=== PATIENT | female | born 1975 | race Caucasian/White ===

== ENCOUNTER 2017-02-23 22:49 | Emergency (ER) | payer OTHER ==
[~2017-02-23] VITALS: Ht 160 cm; Wt 99.8 kg
[~2017-02-23 22:49] MED LIST: OXYC30TA PO; QUET50TA5 PO
[2017-02-23 22:51] VITALS: BP 140/75
[2017-02-24] MEDS ORDERED: HYDROCODON/IBUPROFEN 7.5/200MG TABLET. PO ONE
[2017-02-24] MEDS ORDERED: DIPHTH,PERTUSS(ACELL),TET TOX 0.5 ML DISP.SYRIN. VAX IM ONE
[2017-02-24] MEDS ORDERED: SULF1TAB24 PO (00:36)
[2017-02-24] MEDS ORDERED: HYDR-79 PO (00:36)
--- NOTE | 2017-02-24 00:37 | PHYS DOC ---
Past Medical History Past Medical History: No Pertinent History Past Surgical History: No Surgical History Alcohol Use: None Drug Use: None Adult General Chief Complaint Chief Complaint: ABSCESS HPI HPI Patient is a 41 year old female who presents with an abscess on the left pubic region that began 4 days ago. Patient denies any fever or drainage from the area. Review of Systems Review of Systems Constitutional: See history of present illness Eyes: Denies change in visual acuity, redness, or eye pain [] HENT: Denies nasal congestion or sore throat [] Musculoskeletal: Denies back pain or joint pain [] Integument: Left pubic abscess Neurologic: Denies headache, focal weakness or sensory changes [] Endocrine: Denies polyuria or polydipsia [] Current Medications Current Medications Current Medications Medications (Trade) Dose Ordered Sig/Jack Start Time Stop Time Status Last Admin Dose Admin Diphtheria/ Tetanus/Acell Pertussis (Boostrix) 0.5 ml ONCE ONCE 02/24/17 00:00 02/24/17 00:01 DC 02/24/17 00:19 0.5 ML Hydrocodone Bitartrate/ Ibuprofen (Vicoprofen 7.5-200) 1 tab 1X ONCE 02/24/17 00:00 02/24/17 00:01 DC 02/24/17 00:18 1 TAB Allergies Allergies Allergies Coded Allergies Type Severity Reaction Last Updated Verified acetaminophen Allergy Unknown throat swelling 12/05/14 No Physical Exam Physical Exam Constitutional: Well developed, well nourished, no acute distress, non-toxic appearance. [] Abdomen: Bowel sounds normal, soft, no tenderness, no masses, no pulsatile masses. [] Skin: Left pubic reviewed with an area of induration approximately 3 x 3 cm, the area is surrounded by 4 cm of cellulitis. The area is firm and very tender to palpate and warm to touch. No fluctuance to the area. Back: No tenderness, no CVA tenderness. [] Extremities: No tenderness, no cyanosis, no clubbing, ROM intact, no edema. [] Neurologic: Alert and oriented X 3, normal motor function, normal sensory function, no focal deficits noted. [] Psychologic: Affect normal, judgement normal, mood normal. [] Current Patient Data Vital Signs Vital Signs Date Time Temp Pulse Resp B/P Pulse Ox O2 Delivery O2 Flow Rate FiO2 02/24/17 00:18 18 Room Air 02/23/17 22:51 98.4 86 98 98.4 EKG EKG [] Radiology/Procedures Radiology/Procedures [] Course & Med Decision Making Course & Med Decision Making Pertinent Labs and Imaging studies reviewed. (See chart for details) Patient has left pubic abscess that is not ready to drain. She was given tetanus in the ED. Discharged with Bactrim. Follow-up with primary care doctor in one week. Warm compresses to the area. Provided return precautions and discharged in stable condition. Dragon Disclaimer Dragon Disclaimer This electronic medical record was generated, in whole or in part, using a voice recognition dictation system. Departure Departure Impression: Primary Impression: Abscess of pubic region Disposition: HOME, SELF-CARE Condition: STABLE Referrals: UNKNOWN PCP NAME (PCP) ADAN CROCKER MD Follow-up with your own doctor or the provided doctor in one week Patient Instructions: Abscess Additional Instructions: You were seen for an abscess of the pubic region. Considering its location is more suspicious of an ingrown hair as the cause. Keep the area clean and dry. Apply warm compresses to the area twice a day. Please complete your antibiotics. Follow-up with the provided doctor in a week, come back to the ED at any point symptoms worsen Scripts Hydrocodone/Ibuprofen (Hydrocodone-Ibuprofen 7.5-200 )1 Each Tablet1 Tab PO PRN Q6HRS PRN PAIN #20 TAB Ref 0 Prov:CHAPO FIELDS APRN 02/24/17 Sulfamethoxazole/Trimethoprim (Bactrim Ds Tablet)1 Each Tablet1 Tab PO BID #20 TAB Prov:HCAPO FIELDS APRN 02/24/17 CHAPO FIELDS APRN Feb 24, 2017 00:37
== END 2017-02-24 00:50 | disposition home or self-care (01) ==
LOC: ER 22:49
DX: L02.214 Cutaneous abscess of groin (principal)
CPT/HCPCS: 90471; 90715; 99283-25

== ENCOUNTER → 2018-06-22 | Outpatient (CLI) | payer OTHER ==
[~2018-06-22] MED LIST changes: +HYDR-79 PO; +SULF1TAB24 PO
--- NOTE | 2018-06-22 16:17 | RAD ---
Pelvic ultrasound, 06/22/2018: HISTORY: Amenorrhea Transabdominal and transvaginal scans were obtained. The transabdominal scans were of limited utility due to lack of bladder distention and the patient's body habitus. On the transvaginal scans uterus measures 8.3 x 4.0 x 4.4 cm. A small Nabothian cyst is noted. The central uterine echo complex measures 10 mm in AP dimension. Reportedly the patient just started her menstrual period. The uterus is otherwise unremarkable. The ovaries were not visualized. No adnexal mass is seen. No free fluid is evident in the pelvis. IMPRESSION: 1. Limited exam demonstrating no significant uterine abnormality. 2. The ovaries were not visualized. Electronically signed by: Rohan Mckeon MD (06/22/2018 4:13 PM) [facility]
== END | disposition home or self-care (01) ==
LOC: US 14:44
PROVIDERS: ATTEND Family Medicine
DX: N91.2 Amenorrhea, unspecified (principal); N88.8 Other specified noninflammatory disorders of cervix uteri
CPT/HCPCS: 76830; 76856

== ENCOUNTER 2018-12-13 18:46 | Emergency (ER) | payer OTHER ==
[~2018-12-13] VITALS: Ht 162.6 cm; Wt 102.1 kg
[~2018-12-13 18:46] MED LIST changes: -HYDR-79 PO; +HYDROCODONE-IB1 EAC3 PO; -OXYC30TA PO; +OXYC30TA3 PO
[2018-12-13 18:48] VITALS: BP 163/111
[2018-12-13] MEDS: IPRATRPIUM/ALBUTEROL 0.5/2.5MG 3 ML NEBU. NEB ONE (19:03)
[2018-12-13] MEDS: predniSONE 10 MG TABLET PO ONE (19:09)
[2018-12-13] MEDS ORDERED: PROM118S5 PO (19:56)
[2018-12-13] MEDS ORDERED: ALBU2.5V8 INH (19:56)
[2018-12-13] MEDS ORDERED: DOXY100T PO (19:56)
--- NOTE | 2018-12-13 19:57 | PHYS DOC ---
Past Medical History Past Medical History: No Pertinent History Past Surgical History: No Surgical History Alcohol Use: None Drug Use: None Adult General Chief Complaint Chief Complaint: ASTHMA HPI HPI Patient is a 43 year old [f__sex] who presents with [] Review of Systems Review of Systems Constitutional: Denies fever or chills [] Eyes: Denies change in visual acuity, redness, or eye pain [] HENT: Denies nasal congestion or sore throat [] Respiratory: Denies cough or shortness of breath [] Cardiovascular: No additional information not addressed in HPI [] GI: Denies abdominal pain, nausea, vomiting, bloody stools or diarrhea [] : Denies dysuria or hematuria [] Musculoskeletal: Denies back pain or joint pain [] Integument: Denies rash or skin lesions [] Neurologic: Denies headache, focal weakness or sensory changes [] Endocrine: Denies polyuria or polydipsia [] All other systems were reviewed and found to be within normal limits, except as documented in this note. Current Medications Current Medications Current Medications Medications (Trade) Dose Ordered Sig/Jack Start Time Stop Time Status Last Admin Dose Admin Albuterol/ Ipratropium (Duoneb) 3 ml 1X ONCE 12/13/18 19:00 12/13/18 19:01 DC 12/13/18 19:03 3 ML Prednisone (Prednisone) 50 mg 1X ONCE 12/13/18 19:00 12/13/18 19:01 DC 12/13/18 19:09 50 MG Allergies Allergies Allergies Coded Allergies Type Severity Reaction Last Updated Verified acetaminophen Allergy Unknown throat swelling 12/05/14 No Physical Exam Physical Exam Constitutional: Well developed, well nourished, no acute distress, non-toxic appearance. [] HENT: Normocephalic, atraumatic, bilateral external ears normal, oropharynx moist, no oral exudates, nose normal. [] Eyes: PERRLA, EOMI, conjunctiva normal, no discharge. [] Neck: Normal range of motion, no tenderness, supple, no stridor. [] Cardiovascular:Heart rate regular rhythm, no murmur [] Lungs & Thorax: Bilateral breath sounds clear to auscultation [] Abdomen: Bowel sounds normal, soft, no tenderness, no masses, no pulsatile masses. [] Skin: Warm, dry, no erythema, no rash. [] Back: No tenderness, no CVA tenderness. [] Extremities: No tenderness, no cyanosis, no clubbing, ROM intact, no edema. [] Neurologic: Alert and oriented X 3, normal motor function, normal sensory function, no focal deficits noted. [] Psychologic: Affect normal, judgement normal, mood normal. [] Current Patient Data Vital Signs Vital Signs Date Time Temp Pulse Resp B/P (MAP) Pulse Ox O2 Delivery O2 Flow Rate FiO2 12/13/18 19:05 Room Air 12/13/18 18:48 98.3 86 18 163/111 (128) 98 98.3 EKG EKG [] Radiology/Procedures Radiology/Procedures [] Course & Med Decision Making Course & Med Decision Making Pertinent Labs and Imaging studies reviewed. (See chart for details) [] Dragon Disclaimer Dragon Disclaimer This electronic medical record was generated, in whole or in part, using a voice recognition dictation system. Departure Departure Impression: Primary Impression: Bronchitis Additional Impression: Cough Disposition: HOME, SELF-CARE Condition: STABLE Referrals: Janny BARTLETT MD (PCP) Patient Instructions: Bronchitis, Cough, Adult Additional Instructions: Take the medication as directed. Follow-up with your primary care provider in one week if not improving or return to the emergency department if worsening. Do not drive or operate heavy machinery while taking the medicine for your cough. Scripts Albuterol Sulfate (Proair Hfa) 8.5 Gm Hfa.aer.ad 1 PUFF INH PRN Q6HRS PRN for SHORTNESS OF BREATH, #1 INHALER Prov: KAYLA MAHER APRN 12/13/18 Promethazine Hcl/Codeine (PROMETHAZINE-CODEINE SYRUP) 118 Ml Syrup 5 ML PO Q4-6HRS for cough, #120 ML Prov: KAYLA MAHER APRN 12/13/18 Doxycycline Hyclate (DOXYCYCLINE HYCLATE) 100 Mg Tablet 1 TAB PO BID for cough, #20 TAB Prov: KAYLA MAHER APRN 12/13/18 Problem Qualifiers KAYLA MAHER APRN Dec 13, 2018 19:57
--- NOTE | 2018-12-13 20:19 | RAD ---
CHEST PA LATERAL CLINICAL INDICATION: ER PATIENT. NON PRODUCTIVE COUGH X4 DAYS. PRIOR XRAY. COMPARISON: None FINDINGS: Heart is normal in size. Central bilateral peribronchial wall thickening seen. No focal consolidation. No pneumothorax or pleural effusion. Visualized bony thorax within normal limits. IMPRESSION: Findings of bronchitis. Electronically signed by: Andres Heller DO (12/13/2018 8:15 PM) [facility]
== END 2018-12-13 20:16 | disposition home or self-care (01) ==
LOC: ER 18:46
DX: J40 Bronchitis, not specified as acute or chronic (principal); Z88.6 Allergy status to analgesic agent
CPT/HCPCS: 71046; 94640; 99283; J7512; J7620

== ENCOUNTER 2021-07-02 16:44 | Emergency (ER) | payer BC, OTHER ==
[~2021-07-02] VITALS: Ht 162.6 cm; Wt 111.4 kg
[~2021-07-02 16:44] MED LIST changes: +ALBU2.5V8 INH; +DOXY100T PO; +PROM118S5 PO
[2021-07-02 20:00] VITALS: BP 171/91
--- NOTE | 2021-07-02 20:34 | RAD ---
Single view chest dated 07/02/2021 8:31 PM: COMPARISON: 12/13/2018 Clinical Indication: Shortness breath. Covid 19.. Findings: Single upright portable exam of the chest was performed. Heart and mediastinal contours are stable. T here is patchy airspace disease at the perihilar regions and bilateral lung bases, right greater than left, new from prior study. No pleural effusion. No pneumothorax. IMPRESSION: Mild Patchy bilateral airspace disease, suspicious for Covid 19 pneumonitis. Electronically signed by: Davey Boggs MD (07/02/2021 8:32 PM) [facility]
[2021-07-02] MEDS ORDERED: BENZONATATE 100 MG CAPSULE. PO ONE (22:45)
[2021-07-02] MEDS ORDERED: AZITHROMYCIN 250 MG TABLET. PO ONE (22:45)
[2021-07-02] MEDS ORDERED: BENZ100C PO (22:47)
[2021-07-02] MEDS ORDERED: AZIT250T PO (22:47)
--- NOTE | 2021-07-02 22:47 | PHYS DOC ---
Past Medical History Past Medical History: No Pertinent History (DAVEY LEAL APRN) Past Surgical History: No Surgical History (DAVEY LEAL APRN) Smoking Status: Never Smoker Alcohol Use: None Drug Use: None (DAVEY LEAL APRN) General Adult EDM: Chief Complaint: SHORTNESS OF BREATH HPI: HPI: Patient is a 45 year old female reports ongoing shortness of breath with pain with coughing after being diagnosed with the COVID-19 virus. Patient states she would like a refill of her Tessalon Perle for cough. Patient denies any new symptoms since coming down with the COVID-19 virus. She denies any other physical complaints or physical concerns. (DAVEY LEAL APRN) Review of Systems: Review of Systems: 14 body systems of review of systems have been reviewed. See HPI for pertinent positives and negative responses, otherwise all other systems are negative, nonpertinent or noncontributory. Constitutional: Negative except as outlined in HPI above. Skin: Negative except as outlined in HPI above. Eyes: Negative except as outlined in HPI above. HENT: Negative except as outlined in HPI above. Respiratory: Negative except as outlined in HPI above. Cardiovascular: Negative except as outlined in HPI above. GI: Negative except as outlined in HPI above. : Negative except as outlined in HPI above. Musculoskeletal: Negative except as outlined in HPI above. Integument: Negative except as outlined in HPI above. Neurologic: Negative except as outlined in HPI above. Endocrine: Negative except as outlined in HPI above. Lymphatic: Negative except as outlined in HPI above. Psychiatric: Negative except as outlined in HPI above. (DAVEY LEAL APRN) Heart Score: C/O Chest Pain: No Risk Factors: Risk Factors: DM, Current or recent (<one month) smoker, HTN, HLP, family history of CAD, obesity. Risk Scores: Score 0 - 3: 2.5% MACE over next 6 weeks - Discharge Home Score 4 - 6: 20.3% MACE over next 6 weeks - Admit for Clinical Observation Score 7 - 10: 72.7% MACE over next 6 weeks - Early Invasive Strategies (DAVEY LEAL APRN) Current Medications: Current Medications Medications (Trade) Dose Ordered Sig/Jack Start Time Stop Time Status Last Admin Dose Admin Azithromycin (Zithromax) 500 mg 1X ONCE 07/02/21 22:45 07/02/21 22:46 UNV Benzonatate (Tessalon Perle) 100 mg 1X ONCE 07/02/21 22:45 07/02/21 22:46 UNV (DAVEY ELAL APRN) Allergies: Allergies: Allergies Coded Allergies Type Severity Reaction Last Updated Verified acetaminophen Allergy Unknown throat swelling 12/05/14 No (DAVEY LEAL APRN) Physical Exam: PE: Constitutional: Well developed, well nourished, no acute distress, non-toxic appearance. [] HENT: Normocephalic, atraumatic, bilateral external ears normal, oropharynx moist, no oral exudates, nose normal. [] Eyes: PERRLA, EOMI, conjunctiva normal, no discharge. [] Neck: Normal range of motion, no tenderness, supple, no stridor. [] Cardiovascular:Heart rate regular rhythm, no murmur [] Lungs & Thorax: Bilateral breath sounds clear to auscultation [] Abdomen: Bowel sounds normal, soft, no tenderness, no masses, no pulsatile masses. [] Skin: Warm, dry, no erythema, no rash. [] Back: No tenderness, no CVA tenderness. [] Extremities: No tenderness, no cyanosis, no clubbing, ROM intact, no edema. [] Neurologic: Alert and oriented X 3, normal motor function, normal sensory function, no focal deficits noted. [] Psychologic: Affect normal, judgement normal, mood normal. [] (DAVEY LEAL APRN) Current Patient Data: Vital Signs: Vital Signs Date Time Temp Pulse Resp B/P (MAP) Pulse Ox O2 Delivery O2 Flow Rate FiO2 07/02/21 20:00 99.6 94 18 171/91 (107) 96 Room Air 99.6 (DAVEY LEAL APRN) EKG: EKG: [] (DAVEY LEAL APRN) Radiology/Procedures: Radiology/Procedures: PATIENT: ALEJANDRO SHIOUNT: [id number] : 1975 LOCATION: ER AGE: 45 SEX: F EXAM STATUS: REG ER ORD. PHYSICIAN: DAEVY LEAL APRN REASON: covid positive short of breath PROCEDURE: CHEST AP ONLY Single view chest dated 07/02/2021 8:31 PM: COMPARISON: 12/13/2018 Clinical Indication: Shortness breath. Covid 19.. Findings: Single upright portable exam of the chest was performed. Heart and mediastinal contours are stable. There is patchy airspace disease at the perihilar regions and bilateral lung bases, right greater than left, new from prior study. No pleural effusion. No pneumothorax. IMPRESSION: Mild Patchy bilateral airspace disease, suspicious for Covid 19 pneumonitis. Electronically signed by: Davey Boggs MD (07/02/2021 8:32 PM) [facility] (DAVEY LEAL APRN) Course & Med Decision Making: Course & Med Decision Making Pertinent Labs and Imaging studies reviewed. (See chart for details) 45-year-old female, vital signs reviewed, presents emergency department complaining of ongoing COVID-19 symptoms. Will order portable chest to rule out COVID-19 pneumonia. Patient is not hypoxic, bedside O2 sat 97% on room air, the patient is not in respiratory distress. Patient's chest x-ray concerning for COVID-19 virus pneumonia, discussed with patient findings, will start on Zithromax antibiotic regimen, patient is asking for Tessalon Perle refill, discussed with patient will refill Tessalon Perles, patient is amenable to ED discharge planning and home care. Discussed with the patient all findings and diagnostic testing as well as the need to follow-up with their primary care provider for further evaluation and treatment or return to the ED if any new or worsening symptoms. Strict return precautions were also discussed at length, the patient voiced understanding and agreement with the discharge planning. The patient was nontoxic in appearance, in no apparent distress, and hemodynamically stable at the time of disposition. (DAVEY LEAL APRN) Dragon Disclaimer: Dragon Disclaimer: This electronic medical record was generated, in whole or in part, using a voice recognition dictation system. (DAVEY LEAL APRN) Departure Departure Impression: Primary Impression: COVID-19 virus infection Additional Impression: Atypical pneumonia Disposition: HOME / SELF CARE / HOMELESS Condition: GOOD Referrals: RODDY NIXON (PCP) Patient Instructions: Pneumonia, Adult Additional Instructions: You were seen today for ongoing COVID-19 virus symptoms. A chest x-ray revealed a COVID-19 virus pneumonia, I am covering you with Zithromax antibiotic, your first dose was given in the emergency room today, I am refilling your Tessalon Perle medication, please take as directed. I am sending your prescriptions to the pharmacy you requested. Please increase your fluid intake as we discussed, follow-up with your primary care doctor this coming week, return for worsening symptoms or other concerns. Thank you for visiting our Emergency Department. It was a pleasure taking care of you today in the emergency department and we appreciate you trusting us with your care. If any additional problems come up don't hesitate to return to visit us. Please follow up with your primary care provider so they can plan additional care if needed and know about the problem that you had. If symptoms worsen come back to the Emergency Department. Any concerning symptoms that start such as chest pain, shortness of air, weakness or numbness on one side of the body, running high fevers or any other concerning symptoms return to the ER. You have been tested for or diagnosed with COVID-19. It is an infection caused by a new type of coronavirus. COVID-19 will cause cold-like or mild flu symptoms in most. It can cause more severe symptoms like problems breathing in some. There is no treatment for COVID-19. The body will clear the infection over time. Self-care will help to ease discomfort. Steps to Take: Self-Care Rest as needed. Healthy habits may help you feel better. Steps include: Choose healthy foods including fruits and vegetables. Drink water throughout the day. Get plenty of sleep each night. If you smoke, try to quit. It may ease breathing. Avoid alcohol. Keep Others Healthy The virus can spread to others. Droplets are released every time you sneeze or cough. The droplets can get into the mouth, nose, or eyes of people near you and lead to infection. To lower the chances of spreading COVID-19 to others: Stay at home until your doctor has said it is safe to leave. If you tested positive this will mean staying isolated until both of the following are true: At least 7 days have passed since the start of illness. You are free of fever for at least 72 hours without the use of medicine. During this time: - Avoid public areas, events, or transportation. Do not return to work or school until your doctor has said it is safe to do so. - Call ahead if you need to go to a medical center. Let them know you may have COVID-19. It will help them guide you where to go. They may also ask you to wear a facemask when you come to the office. - If you call for emergency medical services, let them know you may have COVID- 19. While at home: - Try to avoid close contact with others. Stay about 6 feet away. - If possible, spend most of your time in a separate room from others. - Use a face mask if you will be in close contact with others such as sharing a room or vehicle. - Have someone wipe down common surfaces in the home. Use household health outreach worker every day on areas like doorknobs, counters, or sinks. - Cough or sneeze into a tissue. Throw the tissue away right after use. If a tissue is not available, cough or sneeze into your elbow. - Wash your hands often. Wash them after sneezing or coughing. Use soap and water and wash for at least 20 seconds. Alcohol based hand general cleaner can be used if soap and water is not available. - Do not prepare food for others. Avoid sharing personal items like forks, spoons, or toothbrushes. - Avoid close contact with pets while you are sick. There is no evidence of the virus passing to pets. This is a safety step until more is known about this virus. Isolation can be frustrating. Social interaction can help. Keep in touch with friends and family through phone and tech options. You can still interact with others in your home, just keep a safe distance of about 6 feet. Follow-up: Your doctors office will check in with you to see if there are any changes in your health. You may be asked to keep track of symptoms to share with them. They will also let you know when you are clear to be in public again. Problems to Look Out For: Contact your doctor if your recovery is not going as you expect. Get emergency care if you have problems such as: - Trouble breathing - Nonstop chest pain or pressure - Changes in awareness, confusion, or problems waking - Lips or face have bluish color - Worsening of symptoms If you think you have an emergency, call for emergency medical services right away. As taken from [facility] Scripts Benzonatate (TESSALON PERLE) 100 Mg Capsule 1 CAP PO TID for cough, #30 CAP 1 Refill Prov: DAVEY LEAL APRN 07/02/21 Azithromycin (ZITHROMAX) 250 Mg Tablet 1 PKG PO UD for atypical pneumonia, #6 TAB 0 Refills Prov: DAVEY LEAL APRN 07/02/21 Attending Signature Attending Signature I have reviewed the PA/CIVIL ENGINEER's note and plan of care. I was available for consultation as needed during the patient's visit in the emergency department. I agree with the clinical impression, plan, and disposition. (DAVEY WASHINGTON DO) DAVEY LEAL APRN Jul 02, 2021 22:47 DAVEY WASHINGTON DO Jul 03, 2021 02:54
== END 2021-07-02 23:32 | disposition home or self-care (01) ==
LOC: ER 16:44
DX: U07.1 COVID-19 (principal); J18.9 Pneumonia, unspecified organism; Z88.8 Allergy status to other drugs, medicaments and biological substances
CPT/HCPCS: 71045; 99283